=== PATIENT | female | born 2000 | race Caucasian/White ===

== ENCOUNTER 2024-10-30 22:34 | Observation (INO) ==
[2024-10-30] MEDS: ONDANSETRON INJ 2 MG/ML 2 ML VIAL IV STA (23:17)
[2024-10-30] MEDS: SODIUM CHLORIDE 0.9% 1,000 ML IV SCH (23:17)
[2024-10-30 23:19] LABS: Appearance Urine Clear (Clear); Bacteria Urine Automated 1+ (None Seen); Bilirubin Urine Negative (Negative); Blood Urine 1+ (Negative); Cast Urine Automated 0-2 /lpf (0-2); Color Urine Yellow; Glucose Urine UA Negative (Negative); Ketones Urine Trace (Negative); Leukocyte Esterase Urine Trace (Negative); Nitrite Urine Negative (Negative); Protein Urine Negative (Negative); Specific Gravity Urine 1.026 (1.000-1.030); Urobilinogen Urine Negative (Negative); pH Urine 5.5 (4.5-7.5)
[2024-10-30 23:23] LABS: Basophils # (auto) 0.03 K/uL (0.00-0.20); Basophils % (auto) 0.4 %; Eosinophils # (auto) 0.08 K/uL (0.00-0.50); Hematocrit (blood only) 37.7 % (37.0-47.0); Hemoglobin 12.5 g/dl (12.0-16.0); Immature Granulocytes # (auto) 0.01 K/uL (0.01-0.20); Immature Granulocytes % (auto) 0.1 %; Lymphocytes # (auto) 2.96 K/uL (1.20-3.40); Lymphocytes % (auto) 37.6 %; Mean Corpuscular Hemoglobin 27.2 pg (25.0-34.0); Mean Corpuscular Hgb Conc 33.2 g/dL (32.0-36.0); Mean Corpuscular Volume 82.1 fL (80.0-100.0); Mean Platelet Volume 9.6 fL (9.4-12.4); Monocytes # (auto) 0.37 K/uL (0.11-0.59); Monocytes % (auto) 4.7 %; Neutrophils # (auto) 4.43 K/uL (1.40-6.50); Neutrophils % (auto) 56.2 %; Platelet Count 300 K/uL (130-400); RDW Coefficient of Variation 12.5 % (11.5-14.5); RDW Standard Deviation 37.8 fL (36.4-46.3); Red Blood Count 4.59 M/uL (4.20-5.40); White Blood Count 7.88 K/ul (4.8-10.8)
[2024-10-30 23:33] LABS: Albumin Level 3.6 gm/dl (3.4-5.0); BUN Creatinine Ratio 16.7 (10-20); Bilirubin,Total 0.2 mg/dl (0.2-1.0); Creatinine Clr Calc Pharmacy 171.6 ml/min; Globulin 3.5 gm/dl (2.5-4.0); Potassium 3.5 mmol/L (3.5-5.1); Total Protein 7.1 gm/dl (6.0-8.3)
--- NOTE | 2024-10-30 23:36 | Emergency Department Note ---
Impression & Plan Acute appendicitis, Abdominal pain ED Provider Note NAME: ESCOBAR JOSÉ AGE: 24 SEX: F : 2000 ARRIVES VIA: Walk-In INFORMANT: Patient ED PROVIDER(S): Carter Narayanan DO CHIEF COMPLAINT: abdominal pain HPI: Patient is a 24-year-old female who presents to the ER for abdominal pain which started around 3 AM this morning. She notes it is in her right mid abdomen. She initially states it is in her rib cage but then points to her right mid belly. She notes that it tracks down to the lower abdomen. She denies any dysuria, urgency, or frequency. No previous abdominal surgeries. She does have nausea. Denies any chest pain or shortness of breath. No other exacerbating or remitting factors. Last menstrual period was 1 week ago. ADDITIONAL HISTORY OBTAINED: Per HPI Chronic Medical/Social Conditions Affecting Care: Per HPI PAST MEDICAL HISTORY:See Below PAST SURGICAL HISTORY:See Below FAMILY HISTORY:See Below SOCIAL HISTORY:See Below HOME MEDICATIONS:See Below ALLERGIES:See Below VITALS:See Below PHYSICAL EXAMINATION: GENERAL: Sitting up in bed, alert, well appearing, well nourished, no distress, non-toxic EYE EXAM: normal conjunctiva. OROPHARYNX: mucous membranes are moist LUNGS: Clear to auscultation. Normal chest wall mechanics HEART: no murmurs, S1 normal and S2 normal ABDOMEN: abdomen soft, tender to palpation in the right mid to lower abdomen, normo-active bowel sounds, no masses, no rebound or guarding. UPPER EXTREMITIES: upper extremities are grossly normal. LOWER EXTREMITIES: No pitting edema. NEURO EXAM: Normal sensorium, cranial nerves II-XII grossly intact, normal speech, no gross weakness of arms, no gross weakness of legs. MEDICAL DECISION MAKING: Patient is a 24-year-old female who presents ER for right mid to lower quadrant abdominal pain. IV was established and blood work was obtained. Labs show no significant leukocytosis or anemia. BMP with slightly elevated chloride at 109. LFTs bilirubin was unremarkable. Lipase was normal. UA was contaminated with several epithelial cells. was negative. CT abdomen pelvis consistent with acute appendicitis. Patient was given 2 g of cefoxitin. Declined pain medications. Last ate around p.m. Case was discussed with general surgery for admission and further disposition. Consults/Care Managements Discussions: Per [facility] Triage Nursing notes reviewed. Limited review of prior medical records performed Vital Signs: reviewed and remarkable for HTN Differential diagnosis: Differential diagnoses includes but is not limited to gastritis, peptic ulcer disease, GERD, gallbladder disease, pancreatitis, small bowel obstruction, appendicitis, diverticulitis, hernia, urinary tract infection, torsion, /ectopic (if female), perforation, trauma, infectious. ER treatment provided: See below Diagnostics interpreted by me include EKG and cardiac monitoring as listed below: -Cardiac Monitoring: An order was placed for continuous cardiac monitoring. The monitor shows a rate of 70 with sinus rhythm. -ECG: none -Laboratory studies:Interpreted by me as stated above in MDM and shown below. Imaging studies: Xrays: As interpreted by me:none CTs show: CT abdomen pelvis per my preliminary interpretation shows no obvious bowel obstruction CT abdomen pelvis per radiology shows acute appendicitis Procedures:none Critical Care: None Past Med/Surg History Problem List (Updated 10/31/24 @ 01:07 by Carter Narayanan DO) Abdominal pain (Acute) Acute appendicitis (Acute) Social History Smoking Status: Current every day smoker Tobacco Type: E-cigarettes / Vaping Preferred Language: Mosotho Feels Safe at Home: Yes Results & Data (ED) Vital Signs Vital Signs - 24 hr 10/30/24 22:40 10/30/24 23:01 10/30/24 23:04 Temperature 36.8 C Temperature Source Temporal Artery Scan Pulse Rate 85 73 Pulse Rhythm Regular Pulse Strength Normal Respiratory Rate 17 Respiratory Effort / Characteristics Non-Labored Spontaneous Respiratory Depth Normal Respiratory Pattern Regular Blood Pressure 165/95 H Blood Pressure Mean 118 Blood Pressure Position Sitting Pulse Oximetry 96 Oxygen Delivery Method Room Air Room Air Sepsis Recent Fever Within 48 Hours No Sepsis New/Unexplained Change in Mental Status N/A Sepsis Action Taken by Nursing No Action Required Laboratory Data 10/30/24 23:00 10/30/24 23:00 Lab Results 10/30/24 Range/Units 23:00 WBC 7.88 (4.8-10.8) K/ul RBC 4.59 (4.20-5.40) M/uL Hgb 12.5 (12.0-16.0) g/dl Hct 37.7 (37.0-47.0) % MCV 82.1 (80.0-100.0) fL MCH 27.2 (25.0-34.0) pg MCHC 33.2 (32.0-36.0) g/dL RDW Std Deviation 37.8 (36.4-46.3) fL RDW Coeff of Nithin 12.5 (11.5-14.5) % Plt Count 300 (130-400) K/uL MPV 9.6 (9.4-12.4) fL Immature Gran % (Auto) 0.1 % Neut % (Auto) 56.2 % Lymph % (Auto) 37.6 % Banks % (Auto) 4.7 % Eos % (Auto) 1.0 % Baso % (Auto) 0.4 % Neut # (Auto) 4.43 (1.40-6.50) K/uL Lymph # (Auto) 2.96 (1.20-3.40) K/uL Banks # (Auto) 0.37 (0.11-0.59) K/uL Eos # (Auto) 0.08 (0.00-0.50) K/uL Baso # (Auto) 0.03 (0.00-0.20) K/uL Immature Gran # (Auto) 0.01 (0.01-0.20) K/uL Sodium 140 (136-145) mmol/L Potassium 3.5 (3.5-5.1) mmol/L Chloride 109 H (98-107) mmol/L Carbon Dioxide 24 (21-32) mmol/L Anion Gap 7 (3-11) BUN 12 (6-23) mg/dl Creatinine 0.72 (0.6-1.2) mg/dl Est Cr Clr Drug Dosing 171.6 ml/min eGFR 120.41 BUN/Creatinine Ratio 16.7 (10-20) Glucose 125 H (70-99(Fasting)) mg/dl Calcium 9.0 (8.6-10.3) mg/dl Total Bilirubin 0.2 (0.2-1.0) mg/dl AST 10 L (13-39) U/L ALT 8 (7-52) U/L Alkaline Phosphatase 88 (34-104) U/L Total Protein 7.1 (6.0-8.3) gm/dl Albumin 3.6 (3.4-5.0) gm/dl Globulin 3.5 (2.5-4.0) gm/dl Albumin/Globulin Ratio 1.0 (0.9-2) Lipase 23 (11-82) U/L Urine Color Yellow Urine Appearance Clear (Clear) Urine pH 5.5 (4.5-7.5) Ur Specific [place] 1.026 (1.000-1.030) Urine Protein Negative (Negative) Urine Glucose (UA) Negative (Negative) Urine Ketones Trace H (Negative) Urine Blood 1+ H (Negative) Urine Nitrite Negative (Negative) Urine Bilirubin Negative (Negative) Urine Urobilinogen Negative (Negative) Ur Leukocyte Esterase Trace H (Negative) Urine WBC (Auto) 6-10 H (0-5) /hpf Urine RBC (Auto) 3-5 H (0-2) /hpf U Hyaline Cast (Auto) 0-2 (0-2) /lpf U Epithel Cells (Auto) 3-5 H (0-2) /hpf Urine Bacteria (Auto) 1+ H (None Seen) Urine Test Negative (Negative) Administered Medications Cefoxitin Sodium (Mefoxin) 2,000 mg in 60 mls @ 100 mls/hr IV NOW STA Stop: 10/31/24 01:35 Last Admin: 10/31/24 01:15 Dose: 100 mls/hr Documented By: PIETER Discontinued Medications Sodium Chloride (Nss) 1,000 mls @ 999 mls/hr IV .Q1H1M LEONILA Stop: 10/31/24 01:15 Last Admin: 10/31/24 01:15 Dose: 999 mls/hr Documented By: Infusion: 10/31/24 00:18 Dose: Infused Documented By: Admin: 10/30/24 23:17 Dose: 999 mls/hr Documented By: PIETER Ioversol (Optiray 320 100ml) 94 ml IV ONCE ONE Stop: 10/31/24 00:08 Last Admin: 10/31/24 00:07 Dose: 94 ml Documented By: TAMARA Ondansetron HCl (Ondansetron Inj 2 Mg/Ml 2 Ml Vial) 4 mg IV NOW STA Stop: 10/30/24 23:05 Last Admin: 10/30/24 23:17 Dose: 4 mg Documented By: PIETER Imaging Data Radiologist's Impression: Abdomen/Pelvis CT 10/30/24 23:31 CR Exam(s): CT ABDOMEN + PELVIS With Contrast IV Amt: 94 ml EXAM: CT Abdomen and Pelvis With Intravenous Contrast CLINICAL HISTORY: Reason for exam: r mid to lower abd pain. TECHNIQUE: Axial computed tomography images of the abdomen and pelvis with intravenous contrast. CTDI is 28.14 mGy and DLP is 1549.61 mGy-cm. Automated exposure control was utilized for the study. A dose lowering technique was utilized adhering to the principles of ALARA. CONTRAST: Patient received 94 ml of IV contrast COMPARISON: No relevant prior studies available. FINDINGS: Lung bases: Unremarkable. No mass. No consolidation. ABDOMEN: Liver: Focal low-density area in the medial segment of the left hepatic lobe, likely focal fatty infiltration. Gallbladder and bile ducts: Contracted gallbladder. No calcified stones. No ductal dilation. Pancreas: Unremarkable. No mass. No ductal dilation. Spleen: Unremarkable. No splenomegaly. Adrenals: Unremarkable. No mass. Kidneys and ureters: Unremarkable. No solid mass. No hydronephrosis. Stomach and bowel: Unremarkable. No obstruction. No mucosal thickening. PELVIS: Appendix: 10 mm diameter enlarged appendix and mild surrounding fat stranding in the right lower quadrant. Bladder: Unremarkable. No mass. Reproductive: Unremarkable as visualized. ABDOMEN and PELVIS: Intraperitoneal space: Unremarkable. No free air. No significant fluid collection. Bones/joints: No acute fracture. No dislocation. Soft tissues: Unremarkable. Vasculature: Unremarkable. No abdominal aortic aneurysm. Lymph nodes: Unremarkable. No enlarged lymph nodes. IMPRESSION: Acute appendicitis. No free air or abscess. Communications: 10/31/24 00:59 Call Doctor Regarding Appendicitis, called Dr. Narayanan on 10/31 00:59 (-05:00) Electronically signed by: Kevon Graham M.D. 10/31/24 01:04 AM Discharge Plan Visit Data Chief Complaint: Abdominal Pain Stated Complaint: ABD PAIN, VOMITING, NAUSEA, DIZZY ED Provider: Carter Narayanan Discharge Problem: Acute appendicitis, Abdominal pain Forms Stand Alone Forms: [facility] Referrals Referrals: PCP,NO [Physician] - Discharge Problem: Acute appendicitis Qualifiers: Acute appendicitis type: unspecified acute appendicitis type Qualified Code(s): K35.80 - Unspecified acute appendicitis Abdominal pain Qualifiers: Abdominal location: unspecified location Qualified Code(s): R10.9 - Unspecified abdominal pain
[2024-10-30 23:40] LABS: Pregnancy Test, Urine Negative (Negative)
[2024-10-31] MEDS: OPTIRAY 320 100ml IV ONE (00:07)
--- NOTE | 2024-10-31 01:05 | CT Scan Report ---
Exam(s): CT ABDOMEN + PELVIS With Contrast IV Amt: 94 ml EXAM: CT Abdomen and Pelvis With Intravenous Contrast CLINICAL HISTORY: Reason for exam: r mid to lower abd pain. TECHNIQUE: Axial computed tomography images of the abdomen and pelvis with intravenous contrast. CTDI is 28.14 mGy and DLP is 1549.61 mGy-cm. Automated exposure control was utilized for the study. A dose lowering technique was utilized adhering to the principles of ALARA. CONTRAST: Patient received 94 ml of IV contrast COMPARISON: No relevant prior studies available. FINDINGS: Lung bases: Unremarkable. No mass. No consolidation. ABDOMEN: Liver: Focal low-density area in the medial segment of the left hepatic lobe, likely focal fatty infiltration. Gallbladder and bile ducts: Contracted gallbladder. No calcified stones. No ductal dilation. Pancreas: Unremarkable. No mass. No ductal dilation. Spleen: Unremarkable. No splenomegaly. Adrenals: Unremarkable. No mass. Kidneys and ureters: Unremarkable. No solid mass. No hydronephrosis. Stomach and bowel: Unremarkable. No obstruction. No mucosal thickening. PELVIS: Appendix: 10 mm diameter enlarged appendix and mild surrounding fat stranding in the right lower quadrant. Bladder: Unremarkable. No mass. Reproductive: Unremarkable as visualized. ABDOMEN and PELVIS: Intraperitoneal space: Unremarkable. No free air. No significant fluid collection. Bones/joints: No acute fracture. No dislocation. Soft tissues: Unremarkable. Vasculature: Unremarkable. No abdominal aortic aneurysm. Lymph nodes: Unremarkable. No enlarged lymph nodes. IMPRESSION: Acute appendicitis. No free air or abscess. Communications: 10/31/24 00:59 Call Doctor Regarding Appendicitis, called Dr. Narayanan on 10/31 00:59 (-05:00) Electronically signed by: Kevon Graham M.D. 10/31/24 01:04 AM
[2024-10-31] MEDS: cefOXitin 2,000 MG/60 ML BAG IV STA (01:15)
--- NOTE | 2024-10-31 01:52 | History & Physical Report ---
Date of Service October 31, 2024 Assessment & Plan (1) Acute appendicitis: Plan: Patient is an otherwise healthy 24-year-old female who presented to the emergency department with complaints of abdominal pain since yesterday. Upon workup her vital signs are stable and labs are WNL. CT A/P with concerns of enlarged appendix of 10mm with surrounding fat stranding. Patient was seen and evaluated at bedside early this morning. She is nontoxic appearing and resting comfortably, however she does have tenderness in the RLQ with palpation. Recommend the patient be admitted under the surgical service for observation. Will keep NPO, IV maintenance fluids, pain control, IV antibiotics, and Zofran as needed for nausea. Will discuss patient's case with attending surgeon, Dr. Enrique, later this morning and tentatively plan for surgical intervention later today. History of Present Illness Chief Complaint: abdominal pain Primary Care Provider: Lurdes Mares DO Patient is a 24-year-old otherwise healthy female who presented to the emergency department late last evening with complaints of right-sided abdominal pain. Patient states that yesterday morning, roughly around 3AM she was woken up from sleep due to acute onset of abdominal pain that has been present since. Patient originally states her pain was in her "upper abdomen", however when she points to where the pain started it is at her mid abdominal region and states the pain has also started to migrate down into her RLQ. She did have associated nausea and an episode of vomiting with the onset of her pain. Due to the ongoing pain she came to the emergency department for further evaluation. Upon workup CT imaging was concerning for acute appendicitis, at that time the surgical team was consulted for further evaluation. Patient was seen and evaluated at bedside. She is resting comfortably in bed, stable vitals, and is nontoxic appearing. Patient states she is still having abdominal pain and the pain does worsen with movement. On exam she is tender in the RLQ. The patient denies any previous abdominal surgeries and states her last menstrual cycle was last week. She otherwise denies any CP, SOB, changes in bowel or bladder habits, or new onset of fevers or chills. Allergies Allergy/AdvReac Type Severity Reaction Status Date / Time cephalexin [From Keflex] AdvReac Vomiting Verified 10/31/24 03:11 Past Med/Surg History Problem List Abdominal pain (Acute) Acute appendicitis (Acute) Social History Smoking Status: Never smoker Tobacco Type: E-cigarettes / Vaping Hx Alcohol Use: No Hx Substance Use: No Preferred Language: American Communication Ability: Effective [employer] Required: No Current Living Situation: Alone Other Information That Helps Us Care for You: No Feels Safe at Home: Yes Safety Concerns: Feels Safe At This Time Review of Systems Constitutional: as per Subjective / HPI; no fever, no chills and no sweats Respiratory: no problem reported Gastrointestinal: as per Subjective / HPI, + abdominal pain, + nausea and + vomiting Genitourinary: no problem reported Physical Exam 2 Constitutional: WD/WN, vitals as above Respiratory: normal respiratory effort, lungs clear to auscultation Cardiovascular: RRR, no murmur, no edema Gastrointestinal (Abdomen): Abdomen soft, nondistended, +TTP in the RLQ. No rebound or guarding Skin: no rashes, warm and dry Psychiatric: A+Ox3, euthymic affect Results & Data Results & Data Vital Signs (Past 12 Hours) Vital Signs Temp Pulse Resp BP Pulse Ox O2 Del Method 10/30/24 23:04 Room Air 10/30/24 23:01 73 10/30/24 22:40 36.8 C 85 17 165/95 H 96 Room Air Diagnostic Findings Exam(s): CT ABDOMEN + PELVIS With Contrast IV Amt: 94 ml EXAM: CT Abdomen and Pelvis With Intravenous Contrast CLINICAL HISTORY: Reason for exam: r mid to lower abd pain. TECHNIQUE: Axial computed tomography images of the abdomen and pelvis with intravenous contrast. CTDI is 28.14 mGy and DLP is 1549.61 mGy-cm. Automated exposure control was utilized for the study. A dose lowering technique was utilized adhering to the principles of ALARA. CONTRAST: Patient received 94 ml of IV contrast COMPARISON: No relevant prior studies available. FINDINGS: Lung bases: Unremarkable. No mass. No consolidation. ABDOMEN: Liver: Focal low-density area in the medial segment of the left hepatic lobe, likely focal fatty infiltration. Gallbladder and bile ducts: Contracted gallbladder. No calcified stones. No ductal dilation. Pancreas: Unremarkable. No mass. No ductal dilation. Spleen: Unremarkable. No splenomegaly. Adrenals: Unremarkable. No mass. Kidneys and ureters: Unremarkable. No solid mass. No hydronephrosis. Stomach and bowel: Unremarkable. No obstruction. No mucosal thickening. PELVIS: Appendix: 10 mm diameter enlarged appendix and mild surrounding fat stranding in the right lower quadrant. Bladder: Unremarkable. No mass. Reproductive: Unremarkable as visualized. ABDOMEN and PELVIS: Intraperitoneal space: Unremarkable. No free air. No significant fluid collection. Bones/joints: No acute fracture. No dislocation. Soft tissues: Unremarkable. Vasculature: Unremarkable. No abdominal aortic aneurysm. Lymph nodes: Unremarkable. No enlarged lymph nodes. IMPRESSION: Acute appendicitis. No free air or abscess. Code Status & VTE Plan VTE Prophylaxis Plan VTE Prophylaxis will be ordered: Yes Supervising Physician Co-Signing Physician Notes Patient seen and examined, labs and imaging reviewed, agree with above. Presented with abdominal pain that migrated to the right lower quadrant, physical exam and CT scan consistent with acute appendicitis. Admitted overnight. On exam she is afebrile stable vitals, tender to palpation in the right lower quadrant. WBC normal, CT scan personally viewed and interpreted and agree with the assessment of acute appendicitis with a 1 cm appendix with no evidence of perforation. Plan for laparoscopic appendectomy Risk of the procedure were discussed to include but not limited to bleeding, infection, conversion open, damage surrounding structures, need for future more extensive surgery, abscess, the risk of anesthesia Likely discharge later today Wound care instructions and activity restrictions reviewed Return precautions given Follow-up in general surgery clinic in 2 weeks PG Care Time/CCT Total # of Minutes Spent Total Time Spent with Patient: Total time spent is greater than 50% in coordination of care (as documented) at patient's floor/unit and/or counseling patient: [place] [address] INT INP/OBS CARE 1/40MIN Patient Type New Medical Decision Making Straight Forward Diagnoses Acute appendicitis K35.80 Acute appendicitis type: unspecified acute appendicitis type (1) Acute appendicitis Acute appendicitis type: unspecified acute appendicitis type Qualified Code(s): K35.80 - Unspecified acute appendicitis
[2024-10-31] MEDS ORDERED: MoRPHine SULFATE 2 MG/ML CARP IV PRN (02:37)
[2024-10-31] MEDS ORDERED: ONDANSETRON INJ 2 MG/ML 2 ML VIAL IV PRN (02:37)
[2024-10-31] MEDS ORDERED: MoRPHine SULFATE 4 MG/ML 1 ML CARP\\VIAL IV PRN (02:37)
[2024-10-31] MEDS: SODIUM CHLORIDE 0.9% 1,000 ML IV SCH (04:09)
[2024-10-31] MEDS: Patient's ALLERGY Info needs ENTERED STA (04:20)
[2024-10-31] MEDS: PIPERACILLIN/TAZOBACTAM 4.5 GM/100 ML BAG IV SCH (05:23)
[2024-10-31] MEDS: ACETAMINOPHEN 1,000 MG/100 ML VIAL IV PRN (05:27)
--- NOTE | 2024-10-31 07:26 | Anesthesiology Consultation ---
Date of Service October 31, 2024 Assessment & Plan Chart Review Chart Review: Acceptable Risk for Surgery and Patient NOT seen in Pre Admission Testing Consults Requested none ASA [id number] Proposed Anesthesia Anesthesia Type: General History Surgery Operation Date: 10/31/24 09:00 Proposed Procedures p Laparoscopic Appendectomy - Brennon Enrique DO, FACS Height/Weight Height: 5 ft 7 in Weight: 133 kg Allergies Allergy/AdvReac Type Severity Reaction Status Date / Time cephalexin [From Keflex] AdvReac Vomiting Verified 10/31/24 03:11 Medications Active Medications Generic Name Dose Route Start Last Admin Trade Name Freq PRN Reason Stop Dose Admin Piperacillin Sod/Tazobactam Sod 4.5 gm in 100 mls @ 25 mls/hr 10/31/24 06:00 10/31/24 05:23 Zosyn IV 11/10/24 05:59 25 mls/hr Q8H LEONILA Administration Protocol Acetaminophen 1,000 mg in 100 mls @ 400 mls/hr 10/31/24 02:37 10/31/24 05:42 Ofirmev IV 11/03/24 02:36 Infused Q8H PRN Infusion Pain Sodium Chloride 1,000 mls @ 80 mls/hr 10/31/24 02:37 10/31/24 04:09 Nss IV 11/01/24 03:36 80 mls/hr .[id number] LEONILA Administration Past Medical History morbid obesity Exercise / Class Metabolic Activity II 4-5 Yardwork/Stairs/Walk up hill Past Anesthesia History No Hx of Anesthesia Complications and No Family Hx of Anesthesia Complications History of PONV No Hx of PONV and No Hx of Motion Sickness Social History Smoking Status: Never smoker Hx Alcohol Use: No Hx Substance Use: No substance use type: does not use Physical Exam Vital Signs Last Vital Signs Temp 36.6 C 10/31/24 02:37 Pulse 61 10/31/24 02:37 Resp 16 10/31/24 02:37 BP 140/98 10/31/24 02:37 Pulse Ox 96 10/31/24 02:37 O2 Del Method Room Air 10/31/24 02:37 Testing Laboratory Results Urine Color Yellow 10/30/24 23:00 Urine Appearance Clear (Clear) 10/30/24 23:00 Urine pH 5.5 (4.5-7.5) 10/30/24 23:00 Ur Specific [place] 1.026 (1.000-1.030) 10/30/24 23:00 Urine Protein Negative (Negative) 10/30/24 23:00 Urine Glucose (UA) Negative (Negative) 10/30/24 23:00 Urine Ketones Trace (Negative) H 10/30/24 23:00 Urine Nitrite Negative (Negative) 10/30/24 23:00 Ur Leukocyte Esterase Trace (Negative) H 10/30/24 23:00 Urine WBC (Auto) 6-10 /hpf (0-5) H 10/30/24 23:00 Urine RBC (Auto) 3-5 /hpf (0-2) H 10/30/24 23:00 U Hyaline Cast (Auto) 0-2 /lpf (0-2) 10/30/24 23:00 U Epithel Cells (Auto) 3-5 /hpf (0-2) H 10/30/24 23:00 Urine Bacteria (Auto) 1+ (None Seen) H 10/30/24 23:00 Urine Test Negative (Negative) 10/30/24 23:00 10/30/24 23:00 Urine Test Negative
[2024-10-31 07:36] LABS: Basophils # (auto) 0.03 K/uL (0.00-0.20); Basophils % (auto) 0.4 %; Eosinophils # (auto) 0.07 K/uL (0.00-0.50); Hematocrit (blood only) 35.3 % (37.0-47.0); Hemoglobin 11.7 g/dl (12.0-16.0); Immature Granulocytes # (auto) 0.02 K/uL (0.01-0.20); Immature Granulocytes % (auto) 0.3 %; Lymphocytes # (auto) 2.52 K/uL (1.20-3.40); Lymphocytes % (auto) 34.7 %; Mean Corpuscular Hemoglobin 27.7 pg (25.0-34.0); Mean Corpuscular Hgb Conc 33.1 g/dL (32.0-36.0); Mean Corpuscular Volume 83.5 fL (80.0-100.0); Mean Platelet Volume 9.8 fL (9.4-12.4); Monocytes # (auto) 0.37 K/uL (0.11-0.59); Monocytes % (auto) 5.1 %; Neutrophils # (auto) 4.25 K/uL (1.40-6.50); Neutrophils % (auto) 58.5 %; Platelet Count 257 K/uL (130-400); RDW Coefficient of Variation 12.7 % (11.5-14.5); RDW Standard Deviation 38.5 fL (36.4-46.3); Red Blood Count 4.23 M/uL (4.20-5.40); White Blood Count 7.26 K/ul (4.8-10.8)
[2024-10-31 08:06] LABS: BUN Creatinine Ratio 12.9 (10-20); Calcium 8.3 mg/dl (8.6-10.3); Creatinine Clr Calc Pharmacy 177.9 ml/min; Potassium 3.9 mmol/L (3.5-5.1)
[2024-10-31] MEDS ORDERED: MIDAZOLAM HCL 1 MG/ML 2ML VIAL ONE ×2 (08:14→08:18)
[2024-10-31] MEDS ORDERED: PROPOFOL IV EMULSION 10 MG/ML 20 ML VIAL IV ONE (08:17)
[2024-10-31] MEDS ORDERED: DEXAMETHASONE SOD INJ 4 MG/ML VIAL ONE (08:17)
[2024-10-31] MEDS ORDERED: ONDANSETRON INJ 2 MG/ML 2 ML VIAL ONE (08:17)
[2024-10-31] MEDS ORDERED: ROCURONIUM BROMIDE 10 MG/ML 5 ML VIAL IV ONE (08:17)
[2024-10-31] MEDS ORDERED: SUGAMMADEX SODIUM 200 MG/2 ML VIAL IV ONE (08:18)
[2024-10-31] MEDS ORDERED: fentaNYL citrate PF 100 MCG/2 ML VIAL ONE ×2 (08:19→09:25)
[2024-10-31] MEDS ORDERED: ATROPINE SULFATE 0.1 MG/ML 10ML SYR IV PRN (09:02)
[2024-10-31] MEDS ORDERED: NALOXONE HCL 0.4 MG/1 ML VIAL/CARP IV PRN (09:02)
[2024-10-31] MEDS ORDERED: ePHEDrine sulfate 50 MG/ML AMP IV PRN (09:02)
[2024-10-31] MEDS ORDERED: FLUMAZENIL 0.1 MG/1 ML 10 ML VIAL IV PRN (09:02)
[2024-10-31] MEDS ORDERED: GLYCOPYRROLATE 0.2 MG/ML VIAL ONE (09:27)
[2024-10-31] MEDS: BUPIVACAINE 0.5 % 5 MG/1 ML MPF 30ML VIAL ONE (10:13)
--- NOTE | 2024-10-31 10:16 | Operative Report ---
PG Post Operative Report Pre & Post Diagnosis Operation Date: 10/31/24 09:00 Pre-Op Diagnosis: Acute appendicitis Post-Op Diagnosis: Acute appendicitis I identified the patient and participated in the time-out.: Yes Procedure Operation Date: 10/31/24 09:00 Actual Procedures p Laparoscopic Appendectomy(Not Applicable) - Brennon Enrique DO, FACS Surgeon Brennon Enrique DO, FACS Founder Ceo & President none Estimated Blood Loss 5 Findings Consistent with Post-Op Diagnosis Acute nonperforated appendicitis. Specimens Appendix Anesthesia Type General Complications none Disposition Accompanied Patient To Recovery: No Disposition: Recovery Room Indications 24-year-old female presented with signs symptoms of acute appendicitis. CT scan confirmed. Plan for laparoscopic appendectomy. The risks of the procedure were discussed, all questions were answered, and the patient agreed to proceed with surgery as planned. Description of Procedure The patient was properly identified, consented, and taken to the operating room where she was placed in the supine position. General endotracheal anesthesia was induced. SCDs and a safety belt were placed. Preoperative antibiotics were administered. A Silva catheter was not placed. The patient's abdomen was prepped and draped in the standard sterile fashion. Surgical timeout was performed and all parties were in agreement that this was the correct patient and procedure to be performed and we continued as planned. An incision was made just to the left of the umbilicus. Veress needle was inserted and saline drop test confirmed entry to the abdomen. The abdomen insufflated carbon dioxide with the patient Toller without incident. The abdomen was then entered using the Optiview technique with a 5 mm 30 degree scope and a 5 mm trocar. The introducer was removed and the camera reinserted. The abdomen was examined and there was no damage from initial trocar placement or Veress needle placement noted. There were no abnormalities in the 4 quadrants of the abdomen. A 12 mm port was then placed in the left lower quadrant with care not to damage the epigastric vessels, and a 5 mm port was placed in the suprapubic midline with care not to damage the bladder. The patient was placed in Trendelenburg position and rotated towards the left. The small bowel was swept away from the right lower quadrant. The cecum was grasped with an atraumatic grasper exposing the appendix. The appendix was mildly inflamed and there was no evidence of perforation. There was no fluid in the pelvis. A window was created between the base of the appendix and the mesoappendix. A hudson loaded endoscopic stapler was then used to divide the appendix at its base. A hudson load was then used to divide the mesoappendix. Hemostasis was good. The appendix was placed in an Endo Catch bag and removed through the left lower quadrant port site. The right lower quadrant and pelvis was irrigated and hemostasis was found to be good. The fascia of the 12 m port site was closed with an 0 Vicryl suture utilizing a Mykel-Ayanna device. 5 mm trochars were removed and the abdomen was allowed to collapse. The wound was irrigated, and the skin of all ports was closed with 4-0 Monocryl subcuticular sutures. Dermabond was placed over the wounds. The patient was extubated in the operating room and taken to the PACU where she recovered without apparent incident. All sponge, instrument and needle counts were correct at the conclusion of the procedure. The patient tolerated the procedure well. I attest to the content of the Intraoperative Record and any orders documented therein. Any exceptions are noted below.
[2024-10-31] MEDS: ONDANSETRON INJ 2 MG/ML 2 ML VIAL IV PRN (10:26)
[2024-10-31] MEDS: fentaNYL citrate PF 100 MCG/2 ML VIAL IV PRN (10:26)
[2024-10-31] MEDS: PROMETHAZINE HCL 6.25 MG in SODIUM CHLORIDE 0.9% 50 ML IV PRN (10:39)
[2024-10-31] MEDS: SODIUM CHLORIDE 0.9% 50 ML BAG ONE (10:54)
[2024-10-31] MEDS: PROMETHAZINE HCL INJ 25 MG/ML 1 ML VIAL ONE (10:54)
--- NOTE | 2024-10-31 11:10 | Anesthesiology Progress Note ---
Date of Service October 31, 2024 Anesthesia Post Procedure Vital Signs Vital Signs: Temp Pulse Pulse Pulse Pulse Resp BP 10/31/24 11:05 84 18 10/31/24 10:55 85 20 10/31/24 10:45 83 18 10/31/24 10:35 86 18 10/31/24 10:25 104 H 17 10/31/24 10:19 36.0 C L 100 H 14 10/31/24 07:42 36.6 C 64 16 10/31/24 02:37 36.6 C 61 16 10/31/24 02:08 10/30/24 23:04 10/30/24 23:01 73 10/30/24 22:40 36.8 C 85 17 165/95 H BP BP Pulse Ox O2 Del Method O2 Flow Rate 10/31/24 11:05 127/92 95 Room Air 10/31/24 10:55 162/94 H 94 Room Air 10/31/24 10:45 141/94 H 96 Oxymask 3 10/31/24 10:35 141/91 H 95 Oxymask 7 10/31/24 10:25 140/96 98 Oxymask 7 10/31/24 10:19 126/88 95 Oxymask 7 10/31/24 07:42 123/72 97 Room Air 10/31/24 02:37 140/98 96 Room Air 10/31/24 02:08 Room Air 10/30/24 23:04 Room Air 10/30/24 23:01 10/30/24 22:40 96 Room Air Pain Intensity Abdomen: Pain Intensity: 5 Transfer of Care Handoff Completed per policy Notes Mental Status: alert / awake / arousable Patient Amnestic to Procedure: Yes Nausea / Vomiting: adequately controlled Pain: adequately controlled Airway Patency, RR, SpO2: stable & adequate BP & HR: stable & adequate Hydration State: stable & adequate Anesthetic Complications: no major complications apparent
[2024-10-31] MEDS ORDERED: oxyCODONE HCL IR 5 MG TAB (IMMEDIATE RELEASE) PO PRN ×2 (11:21)
[2024-10-31] MEDS: KETOROLAC TROMETHAMINE 15 MG/ML VIAL IV SCH (11:32)
[2024-10-31 11:34] VITALS: RESP 16
[2024-10-31 14:39] VITALS: BP 112/68; PULSE 65; TEMP 97.9; O2SAT 97
[2024-10-31] MEDS: ACETAMINOPHEN 325 MG TAB PO PRN (14:50)
== END 2024-10-31 17:11 | disposition home or self-care (01) ==
LOC: ED 22:34 → 3N 22:34